=== PATIENT | female | born 1945 | race Caucasian/White ===

== ENCOUNTER → 2024-10-17 | Outpatient (REF) | payer MEDICARE ==
[~2024-10-17] MED LIST: ACETAMINOPHEN325 M1 PO; ADVIL; ALENDRONATE SOD70 MG PO; AMLODIPINE BESYL5 MG PO; CALCIUM 600 MG1 EAC4; CALCIUM600 MG PO; COLACE100 MG PO; MELATONIN; METOPROLOL TART25 MG PO; PLAQUENIL200 MG PO; PREDNISONE5 MG PO; TYLENOL PM; TYLENOL WITH C1 EACH PO; ULTRAM 50MG50 MG PO; ULTRAM50 MG PO; UNISOM50 MG PO; VITAMIN D PO; VITAMIN D-3 PO; Z.0.PLAQUENIL200 MG PO; Z.0.PREDNISONE5 MG PO; Z.0.VITAMIN D1000 UN PO
== END ==
LOC: CT 14:47
PROVIDERS: ATTEND Family Medicine
DX: M25.551 Pain in right hip (principal)
CPT/HCPCS: 72192